=== PATIENT | female | born 1995 | race Caucasian/White ===

== ENCOUNTER 2025-01-29 19:40 | Inpatient (IN) | payer OTHER, SELFPAY ==
[2025-01-29 20:08] VITALS: BP 134/84; BMI 34.7
[2025-01-29 21:03] LABS: % Basophils 0.2 % (0-2); % Eosinophils 1.1 % (0-6); % Immature Granulocytes 0.5 % (0-0.5); % Lymphocytes 17.4 % (20.5-51.1); % Monocytes 6.9 % (1.7-9.3); % Neutrophils 73.9 % (42.2-75.2); Absolute Eosinophils 0.1 10^3/uL (0-0.7); Absolute Lymphocytes 1.5 10^3/uL (1.2-3.4); Absolute Monocytes 0.6 10^3/uL (0.1-0.6); Absolute Neutrophils 6.5 10^3/uL (1.4-6.5); Hematocrit 34.2 % (37.0-47.0); Mean Corp Hgb Conc. 35.1 g/dL (33.0-37.0); Mean Corpuscular Volume 85.5 fL (81.0-99.0); Nucleated Red Blood Cells % 0 %; Platelet Count 221 10^3/uL (130-400); Red Cell Dist. Width 13.2 % (11.5-14.5); White Blood Cell Count 8.8 10^3/uL (4.8-10.8)
[2025-01-29] MEDS: CYTOTEC 25 MICROGRAM VAG (21:24)
[2025-01-29 21:52] LABS: ALT (SGPT) 24 U/L (0-35); AST (SGOT) 21 U/L (14-36); Albumin 3.4 g/dl (3.5-5.0); Alkaline Phosphatase 128 U/L (38-126); Blood Urea Nitrogen 11 mg/dl (7-17); Calcium 9.6 mg/dl (8.4-10.2); Carbon Dioxide 16 mmol/L (22-30); Chloride 113 mmol/L (98-107); Estimated Creatinine Clearance > 125 ml/min; Glucose 121 mg/dl (70-99); Potassium 3.7 mmol/L (3.5-5.1); Sodium 137 mmol/L (135-145); Total Bilirubin 0.3 mg/dl (0.2-1.3); Total Protein 5.9 g/dl (6.3-8.2); eGFR > 60.00
[2025-01-29 23:42] LABS: Protein/creatinine Ratio 0.1; Urine Protein 12 mg/dl
[2025-01-30] MEDS: LR 1000 IV ×2 (01:17→04:49)
[2025-01-30] MEDS: TUMS CHEWABLE TABLET 400 MG PO (01:23)
[2025-01-30 01:37] LABS: HIV Combo Negative (Negative)
[2025-01-30] MEDS: PENICILLIN 110 UNITS IV (03:51)
[2025-01-30] MEDS: FENTANYL/BUPIVACAINE 100 EPIDURAL ×2 (07:54→16:03)
[2025-01-30] MEDS: SUBLIMAZE 100 MCG EPIDURAL (07:54)
[2025-01-30] MEDS: PENICILLIN 55 UNITS IV ×3 (08:07→16:03)
[2025-01-30] MEDS: MOTRIN 600 MG PO (20:15)
[2025-01-30] MEDS: TYLENOL 650 MG PO (21:44)
[2025-01-31] MEDS: TYLENOL 650 MG PO ×3 (04:19→18:36)
[2025-01-31] MEDS: MOTRIN 600 MG PO ×3 (04:19→18:35)
[2025-01-31 05:23] LABS: Hematocrit 34.7 % (37.0-47.0); Hemoglobin 12.3 g/dL (12.0-16.0)
[2025-01-31] MEDS: SENOKOT-S 1 TABLET PO (08:46)
[2025-01-31] MEDS: PRENATAL PLUS 1 TABLET PO (08:47)
[2025-01-31 14:23] LABS: Syphilis/T. pallidum Ab Reflex Negative (Negative)
[2025-02-01] MEDS: TYLENOL 650 MG PO (05:15)
[2025-02-01] MEDS: MOTRIN 600 MG PO (05:15)
[2025-02-01] MEDS: PRENATAL PLUS 1 TABLET PO (08:06)
[2025-02-01] MEDS: SENOKOT-S 1 TABLET PO (08:07)
[2025-02-01] MEDS: M-M-R II 0.5 ML SC (11:15)
== END 2025-02-01 11:50 | disposition home or self-care (01) | DRG 806 ==
LOC: LDRP 19:40
PROVIDERS: Obstetrics & Gynecology; ADMITTING PHYSICIAN Student in an Organized Health Care Education/Training Program
PROC: 3E0P7VZ Introduction of Hormone into Female Reproductive, Via Natural or Artificial Opening (ICD-10-PCS; 2025-01-29)
PROC: 10E0XZZ Delivery of Products of Conception, External Approach (ICD-10-PCS; 2025-01-30)
PROC: 10907ZC Drainage of Amniotic Fluid, Therapeutic from Products of Conception, Via Natural or Artificial Opening (ICD-10-PCS; 2025-01-30)
PROC: 0HQ9XZZ Repair Perineum Skin, External Approach (ICD-10-PCS; 2025-01-30)
PROC: 3E0234Z Introduction of Serum, Toxoid and Vaccine into Muscle, Percutaneous Approach (ICD-10-PCS; 2025-02-01)
DX: O48.0 Post-term pregnancy (principal); O87.2 Hemorrhoids in the puerperium; Z37.0 Single live birth; O98.32 Other infections with a predominantly sexual mode of transmission complicating childbirth; Z3A.40 40 weeks gestation of pregnancy; O70.0 First degree perineal laceration during delivery; O99.824 Streptococcus B carrier state complicating childbirth; O69.2XX0 Labor and delivery complicated by other cord entanglement, with compression, not applicable or unspecified; O69.81X0 Labor and delivery complicated by cord around neck, without compression, not applicable or unspecified; A60.09 Herpesviral infection of other urogenital tract; O76 Abnormality in fetal heart rate and rhythm complicating labor and delivery; O99.63 Diseases of the digestive system complicating the puerperium; K59.00 Constipation, unspecified; Z23 Encounter for immunization
CPT/HCPCS: 36415; 80053; 82570; 84156; 85014; 85018; 85025; 86780; 86850; 86900; 86901; 87389; 90707

== ENCOUNTER → 2025-03-12 09:36 | Outpatient (REF) | payer OTHER, SELFPAY | LOC: WDC 09:36 | PROVIDERS: ATTENDING PHYSICIAN Obstetrics & Gynecology | DX: D24.9 Benign neoplasm of unspecified breast (principal); N63.10 Unspecified lump in the right breast, unspecified quadrant; N63.20 Unspecified lump in the left breast, unspecified quadrant; N63.12 Unspecified lump in the right breast, upper inner quadrant; N63.42 Unspecified lump in left breast, subareolar | CPT/HCPCS: 76642 ==